=== PATIENT | male | born 1940 | race Caucasian/White ===

== ENCOUNTER 2018-03-06 22:39 | Emergency (ER) | payer MEDICARE, OTHER ==
[~2018-03-06] VITALS: Ht 167.6 cm; Wt 105.0 kg
[~2018-03-06 22:39] MED LIST: AMLO-512 PO; CALC600T2 PO; LOSA50TA37 PO; MULT-959 PO; SIMV-261 PO; TAMS0.4C32 PO
[2018-03-07] MEDS ORDERED: IBUPROFEN 800 MG TABLET PO ONE (00:45)
[2018-03-07] MEDS ORDERED: LIDOCAINE HCL 5% TRANSDERMAL PATCH TD ONE (00:45)
[2018-03-07 02:16] VITALS: BP 147/80
== END 2018-03-07 03:03 | disposition home or self-care (01) ==
LOC: EMS 22:40
DX: M51.36 Other intervertebral disc degeneration, lumbar region (principal); I10 Essential (primary) hypertension
CPT/HCPCS: 72100; 99284

== ENCOUNTER 2022-07-14 17:54 | Emergency (ER) | payer MEDICARE, OTHER ==
[~2022-07-14] VITALS: Ht 167.6 cm; Wt 90.9 kg
[~2022-07-14 17:54] MED LIST changes: +AMLO-258 PO; -AMLO-512 PO; +LOSA-382 PO; -LOSA50TA37 PO; +TAMS-13 PO; -TAMS0.4C32 PO
[2022-07-14] MEDS ORDERED: OMEP10CA5 PO (18:02)
[2022-07-14] MEDS ORDERED: IRBE150T51 PO (18:02)
[2022-07-14] MEDS ORDERED: 0.9% SODIUM CHLORIDE 10 ML SYRINGE IVP PRN (18:15)
[2022-07-14] MEDS ORDERED: KETOROLAC TROMETHAMINE 30 MG/ML VIAL IVP ONE (18:15)
[2022-07-14] MEDS ORDERED: ACETAMINOPHEN 500 MG TABLET PO ONE (18:15)
[2022-07-14] MEDS ORDERED: DUTA0.5C37 PO (18:22)
[2022-07-14] MEDS ORDERED: ATOR40TA71 PO (18:22)
[2022-07-14] MEDS ORDERED: FLUT16H NASAL (18:22)
[2022-07-14] MEDS ORDERED: MULT-1387 PO (18:22)
[2022-07-14] MEDS ORDERED: METF-1211 PO (18:22)
[2022-07-14] MEDS ORDERED: SEMA1PEN3 SQ (18:22)
[2022-07-14] MEDS ORDERED: OMEP20CA12 PO (18:22)
[2022-07-14 18:48] LABS: BASOPHILS % (AUTO) 0.2 % (0.0-2.0); EOSINOPHILS % (AUTO) 0.7 % (1.0-6.0); HEMATOCRIT 40.1 % (41-53); HEMOGLOBIN 13.6 g/dL (13.5-17.5); LYMPHOCYTES # (AUTO) 0.7 K/uL (1.0-4.8); LYMPHOCYTES % (AUTO) 6.5 % (22.0-44.0); MEAN CORPUSCULAR HEMOGLOBIN 33.1 pg (26.0-34.0); MEAN CORPUSCULAR VOLUME 97 fL (80-100); MONOCYTES # (AUTO) 0.6 K/uL (0.1-1.0); MONOCYTES % (AUTO) 6.2 % (2.0-9.0); NEUTROPHILS # (AUTO) 8.6 K/uL (1.8-7.7); PLATELET COUNT (AUTO) 275 K/uL (150-450); RED BLOOD CELL COUNT(AUTO) 4.12 MIL/uL (4.50-5.90); RED CELL DISTRIBUTION WIDTH 13.2 % (11.5-14.5)
[2022-07-14 18:52] LABS: NEUTROPHILS % (AUTO) 86.4 % (40.0-70.0)
[2022-07-14 19:02] LABS: ANION GAP 4 mmol/L (8-16); CALCIUM, TOTAL 9.7 mg/dL (8.8-10.5); CARBON DIOXIDE 27 mmol/L (22-29); CHLORIDE 100 mmol/L (98-107); CREATININE 1.14 mg/dL (0.60-1.30); GLUCOSE,RANDOM 128 mg/dL (70-110); POTASSIUM 4.2 mmol/L (3.5-5.1); SODIUM SERUM 131 mmol/L (136-145); UREA NITROGEN, BLOOD 18 mg/dL (7-18)
[2022-07-14 19:03] LABS: GLOMERULAR FILTR. RATE CALC > 60 mL/min (>60)
[2022-07-14 19:10] LABS: LACTIC ACID 1.2 mmol/L (0.4-2.0)
[2022-07-14] MEDS ORDERED: SODIUM CHLORIDE 0.9% 100 ML ONE (19:14)
[2022-07-14] MEDS ORDERED: IOHEXOL 300 MG/ML 100 ML VIAL ONE (19:14)
[2022-07-14 19:22] LABS: ALANINE AMINOTRANSFERASE 27 U/L (12-78); ALBUMIN 3.6 g/dL (3.4-5.0); ALKALINE PHOSPHATASE 65 U/L (46-116); ASPARTATE AMINOTRANSFERASE 17 U/L (15-37); BILIRUBIN,TOTAL 0.6 mg/dL (0.1-1.0); CREATINE KINASE, TOTAL ONLY 113 U/L (39-308); TOTAL PROTEIN, SERUM 7.1 g/dL (6.4-8.2)
[2022-07-14] MEDS ORDERED: SODIUM CHLORIDE 0.9% 1,000 ML IV ONE ×2 (19:30→21:30)
[2022-07-14 20:00] LABS: APPEARANCE,URINE CLEAR (CLEAR); BILIRUBIN,URINE NEGATIVE (NEGATIVE); GLUCOSE, URINE (UA) NEGATIVE (NEGATIVE); KETONES,URINE NEGATIVE (NEGATIVE); LEUKOCYTE ESTERASE ,URINE SMALL (NEGATIVE); NITRATE,URINE NEGATIVE (NEGATIVE); OCCULT BLOOD,URINE MODERATE (NEGATIVE); PROTEIN,URINE NEGATIVE (NEGATIVE); SPECIFIC GRAVITIY, URINE 1.024 (1.003-1.030); UROBILINOGEN,URINE <=1.0 mg/dL (<=1.0)
[2022-07-14 20:08] LABS: BACTERIA,URINE None Seen /HPF (None Seen); WBC,URINE 0-2 /HPF (0-5)
[2022-07-14 20:09] LABS: SQUAMOUS EPITHELIAL CELL,UR Few /LPF (None Seen)
[2022-07-14] MEDS ORDERED: LEVO-72 PO (21:03)
[2022-07-14] MEDS ORDERED: LEVOFLOXACIN 500 MG TABLET PO ONE (21:15)
[2022-07-14 22:56] VITALS: BP 148/78
== END 2022-07-14 23:12 | disposition home or self-care (01) ==
LOC: EMS 17:54
DX: N45.3 Epididymo-orchitis (principal); E11.9 Type 2 diabetes mellitus without complications; E78.00 Pure hypercholesterolemia, unspecified; I10 Essential (primary) hypertension
CPT/HCPCS: 99285; 74177; 96374; 96361; 80053; 81001; 82550; 82962; 83605; 85025; 36415; 76870; J1885; J7050; Q9967; 96375

== ENCOUNTER 2023-01-09 08:39 | Emergency (ER) | payer MEDICARE ==
[~2023-01-09] VITALS: Ht 167.6 cm; Wt 101.0 kg
[~2023-01-09 08:39] MED LIST changes: +ATOR40TA71 PO; -CALC600T2 PO; +DUTA0.5C37 PO; +FLUT16SP NASAL; +IRBE150T51 PO; +LEVO-72 PO; -LOSA-382 PO; +METF-1211 PO; +MULT-1387 PO; -MULT-959 PO; +OMEP20CA12 PO; +SEMA1PEN3 SQ; -SIMV-261 PO
[2023-01-09 09:28] LABS: BASOPHILS % (AUTO) 0.7 % (0.0-2.0); EOSINOPHILS % (AUTO) 3.8 % (1.0-6.0); HEMOGLOBIN 14.4 g/dL (13.5-17.5); LYMPHOCYTES # (AUTO) 1.2 K/uL (1.0-4.8); LYMPHOCYTES % (AUTO) 27.2 % (22.0-44.0); MEAN CORPUSCULAR HEMOGLOBIN 33.9 pg (26.0-34.0); MEAN CORPUSCULAR VOLUME 97 fL (80-100); MONOCYTES # (AUTO) 0.4 K/uL (0.1-1.0); MONOCYTES % (AUTO) 9.1 % (2.0-9.0); NEUTROPHILS # (AUTO) 2.7 K/uL (1.8-7.7); NEUTROPHILS % (AUTO) 59.2 % (40.0-70.0); PLATELET COUNT (AUTO) 246 K/uL (150-450); RED BLOOD CELL COUNT(AUTO) 4.24 MIL/uL (4.50-5.90); RED CELL DISTRIBUTION WIDTH 13.4 % (11.5-14.5)
[2023-01-09 09:37] LABS: ANION GAP 4 mmol/L (8-16); CALCIUM, TOTAL 10.3 mg/dL (8.8-10.5); CARBON DIOXIDE 28 mmol/L (22-29); CHLORIDE 105 mmol/L (98-107); CREATININE 0.82 mg/dL (0.60-1.30); GLOMERULAR FILTR. RATE CALC > 60 mL/min (>60); GLUCOSE,RANDOM 104 mg/dL (70-110); POTASSIUM 4.7 mmol/L (3.5-5.1); SODIUM SERUM 137 mmol/L (136-145); UREA NITROGEN, BLOOD 12 mg/dL (7-18)
[2023-01-09 09:43] LABS: ALANINE AMINOTRANSFERASE 31 U/L (12-78); ALBUMIN 4.1 g/dL (3.4-5.0); ALKALINE PHOSPHATASE 61 U/L (46-116); ASPARTATE AMINOTRANSFERASE 24 U/L (15-37); BILIRUBIN,TOTAL 0.7 mg/dL (0.1-1.0); TOTAL PROTEIN, SERUM 7.4 g/dL (6.4-8.2)
[2023-01-09] MEDS ORDERED: IBUP-45 PO (10:31)
[2023-01-09 10:48] VITALS: BP 142/78
== END 2023-01-09 11:00 | disposition home or self-care (01) ==
LOC: EMS 08:45
DX: S00.03XA Contusion of scalp, initial encounter (principal); S06.0X0A Concussion without loss of consciousness, initial encounter; S40.011A Contusion of right shoulder, initial encounter; R42 Dizziness and giddiness; E11.9 Type 2 diabetes mellitus without complications; E78.00 Pure hypercholesterolemia, unspecified; I10 Essential (primary) hypertension; W18.30XA Fall on same level, unspecified, initial encounter; Y93.89 Activity, other specified; Y92.89 Other specified places as the place of occurrence of the external cause; Y99.8 Other external cause status
CPT/HCPCS: 70450; 80053; 82962; 85025; 99285

== ENCOUNTER 2023-10-10 21:29 | Emergency (ER) | payer MEDICARE ==
[~2023-10-10] VITALS: Ht 167.6 cm; Wt 100.0 kg
[~2023-10-10 21:29] MED LIST changes: +IBUP-45 PO; -TAMS-13 PO; +TAMS0.4C94 PO
[2023-10-10 22:01] LABS: GLUCOMETER DEV NAME(LOC) ERT.5; GLUCOSE,POINT OF CARE 132 MG/DL (70-110)
[2023-10-11 00:06] VITALS: BP 120/64; PULSE 78; RESP 18; TEMP 98.7
[2023-10-11] MEDS ORDERED: ACETAMINOPHEN 500 MG TABLET PO ONE (01:00)
== END 2023-10-11 01:11 | disposition home or self-care (01) ==
LOC: EMS 21:30
DX: S40.011A Contusion of right shoulder, initial encounter (principal); R07.89 Other chest pain; E11.9 Type 2 diabetes mellitus without complications; E78.00 Pure hypercholesterolemia, unspecified; I10 Essential (primary) hypertension; W18.49XA Other slipping, tripping and stumbling without falling, initial encounter; Y93.01 Activity, walking, marching and hiking; Y92.89 Other specified places as the place of occurrence of the external cause; Y99.8 Other external cause status
CPT/HCPCS: 71045; 82962; 99284